=== PATIENT | female | born 1985 | race Caucasian/White ===

== ENCOUNTER 2022-07-02 15:44 | Emergency (ER) | payer MEDICAID ==
[~2022-07-02] VITALS: Ht 154.9 cm; Wt 82.0 kg
[2022-07-02 16:21] VITALS: BP 122/80
== END 2022-07-02 21:42 | disposition left against medical advice (07) ==
LOC: ER 15:44
DX: Z53.21 Procedure and treatment not carried out due to patient leaving prior to being seen by health care provider (principal)